=== PATIENT | female | born 1980 | race Two or more races ===

== ENCOUNTER 2022-04-28 17:52 | Emergency (ER) | payer BC ==
[~2022-04-28] VITALS: Ht 152.4 cm; Wt 67.1 kg
--- NOTE | 2022-04-28 18:00 | NUR ---
REceived pt 41 yrs female came from home c/o pain on rt claudiaulder for one days she leaftinf valent[place] object
[2022-04-28 18:14] VITALS: BP 124/55
[2022-04-28] MEDS ORDERED: KETOROLAC TROMETHAMINE INJ 60 MG/2 ML VIAL IM ONE (18:30)
[2022-04-28] MEDS ORDERED: KETOROLAC TROMETHAMINE INJ 30 MG/ML VIAL ONE (18:44)
--- NOTE | 2022-04-28 18:53 | NUR ---
X RAY DONE AT BED SIDE
--- NOTE | 2022-04-28 19:40 | NUR ---
HAND OFF JOSHUA NANCE
[2022-04-28] MEDS ORDERED: IBUP-1955 PO (20:27)
[2022-04-28] MEDS ORDERED: METH-647 PO (20:32)
--- NOTE | 2022-04-28 20:34 | NUR ---
Patient discharged to home in stable condition. Written and verbal after care instructions given. Patient verbalizes understanding of instruction.
== END 2022-04-28 20:35 | disposition home or self-care (01) ==
LOC: ER 17:52
DX: M25.511 Pain in right shoulder (principal); M19.011 Primary osteoarthritis, right shoulder; Z79.899 Other long term (current) drug therapy
CPT/HCPCS: 99283; 96372; 73030; J1885

== ENCOUNTER 2023-01-17 18:42 | Emergency (ER) | payer BC ==
[~2023-01-17] VITALS: Ht 154.9 cm; Wt 70.3 kg
[~2023-01-17 18:42] MED LIST: IBUP-1955 PO; METH-647 PO
[2023-01-17] MEDS ORDERED: KETOROLAC TROMETHAMINE 15 MG/ML VIAL ONE (21:10)
[2023-01-17] MEDS ORDERED: diphenhydrAMINE HCL 50 MG/ML VIAL ONE (21:10)
[2023-01-17] MEDS ORDERED: METOCLOPRAMIDE HCL 10 MG/2 ML VIAL ONE (21:10)
[2023-01-17] MEDS ORDERED: diphenhydrAMINE HCL 50 MG/ML VIAL IV ONE (21:30)
[2023-01-17] MEDS ORDERED: KETOROLAC TROMETHAMINE INJ 30 MG/ML VIAL IV ONE (21:30)
[2023-01-17] MEDS ORDERED: METOCLOPRAMIDE HCL 10 MG/2 ML VIAL IV ONE (21:30)
[2023-01-17] MEDS ORDERED: IV NS 0.9% 1,000 ML BAG IV ONE (21:30)
[2023-01-17 21:43] LABS: BASOPHILS % (AUTO) 0.3 % (0.0-2.0); EOSINOPHILS # (AUTO) 0.4 K/uL (0.0-0.7); EOSINOPHILS % (AUTO) 5.4 % (0.0-6.0); HEMATOCRIT 38 % (33-45); HEMOGLOBIN 12.5 g/dL (11.5-14.8); LYMPHOCYTES # (AUTO) 2.1 K/uL (0.8-4.8); LYMPHOCYTES % (AUTO) 25.9 % (20.0-44.0); MEAN CORPUSCULAR HEMOGLOBIN 29 PG (26.0-33.0); MEAN CORPUSCULAR HGB CONC 33 g/dl (31.0-36.0); MEAN CORPUSCULAR VOLUME 89 fL (82-100); MONOCYTES # (AUTO) 0.8 K/uL (0.1-1.30); MONOCYTES % (AUTO) 9.6 % (2.0-12.0); NEUTROPHILS # (AUTO) 4.7 K/uL (1.8-8.9); NEUTROPHILS % (AUTO) 58.8 % (43.0-81.0); PLATELET COUNT (AUTO) 318 K/uL (150-450); WHITE BLOOD COUNT (AUTO) 8.1 K/uL (4.3-11.0)
[2023-01-17 22:07] LABS: ALBUMIN 3.7 g/dL (3.4-5.0); BILIRUBIN,DIRECT 0.1 mg/dL (0.0-0.2); BILIRUBIN,TOTAL 0.3 mg/dL (0.2-1.0); CALCIUM, SERUM 9.1 mg/dL (8.5-10.1); CREATININE 0.5 mg/dL (0.6-1.3); POTASSIUM 3.7 mmol/L (3.5-5.1); TOTAL PROTEIN, SERUM 7.1 g/dL (6.4-8.2)
[2023-01-18] MEDS ORDERED: LOPE2TAB25 PO (00:16)
[2023-01-18] MEDS ORDERED: DICY10CA37 PO (00:16)
[2023-01-18] MEDS ORDERED: ONDA4TAB11 PO (00:16)
[2023-01-18 00:49] VITALS: BP 103/59; TEMP 98.7; O2SAT 99
== END 2023-01-18 00:49 | disposition home or self-care (01) ==
LOC: ER 18:46
DX: K52.9 Noninfective gastroenteritis and colitis, unspecified (principal); R51.9 Headache, unspecified
CPT/HCPCS: 99284; 96374; 96375; 96361; 85025; 80048; 83690; 80076; 36415; J1200; J2765; J7030; J1885